=== PATIENT | female | born 1980 | race Hispanic/Latino ===

== ENCOUNTER 2017-05-25 06:35 | Emergency (ER) | payer MEDICAID, OTHER ==
[2017-05-25 06:44] VITALS: BP 136/63; PULSE 102; RESP 19; TEMP 98.3; O2SAT 100; BMI 27.4
[2017-05-25] MEDS ORDERED: Oxycodone/Acetaminophen 5/325 mg Tab PO STA (07:22)
--- NOTE | 2017-05-25 07:42 | ED PDOC ---
Arrival/HPI - General Chief Complaint: Dental Pain Time Seen by Provider: 05/25/17 07:06 Historian: Patient - History of Present Illness Narrative History of Present Illness (Text): 05/25/17 08:00 A 37 year old female presents to the emergency department complaining of left upper tooth pain radiating to lower teeth and headache for the past week. Notes taking Tramadol and Advil for pain. Patient reports last dentist check up was a year ago. Patient notes she has a dentist appointment tomorrow. Denies any numbness or tingling in extremities. Denies any other complaints at this time. Dentist: Dr. Camilo ([place]) Time/Duration: 1 week Symptom Onset: Sudden Symptom Course: Unchanged Activities at Onset: Rest Context: Home Past Medical History - Provider Review Nursing Documentation Reviewed: Yes - Infectious Disease Hx of Infectious Diseases: None - Tetanus Immunization Tetanus Immunization: Unknown - Cardiac Hx Cardiac Disorders: No Hx Hypertension: No - Pulmonary Hx Respiratory Disorders: No - Neurological Hx Dizziness: Yes Hx Seizures: Yes - HEENT Hx HEENT Disorder: No - Renal Hx Renal Disorder: No - Endocrine/Metabolic Hx Endocrine Disorders: No - Hematological/Oncological Hx Anemia: Yes - Integumentary Hx Dermatological Disorder: No - Musculoskeletal/Rheumatological Hx Musculoskeletal Disorders: No Hx Falls: No - Gastrointestinal Hx Gastrointestinal Disorders: No - Genitourinary/Gynecological Hx Sexually Transmitted Diseases: No Hx Urinary Tract Infection: Yes - Psychiatric Hx Depression: Yes (when father ,STARTED DRINKING.FATHER IS AN ALCOHOLIC) Hx Substance Use: Yes - Past Surgical History Past Surgical History: No Previous - Surgical History Hx Tonsillectomy: Yes - Anesthesia Hx Anesthesia: Yes Hx Anesthesia Reactions: No Hx Malignant Hyperthermia: No - Suicidal Assessment Feels Threatened In Home Enviroment: No Family/Social History - Physician Review Nursing Documentation Reviewed: Yes Family/Social History: No Known Family HX Smoking Status: Current Some Days Smoker Hx Alcohol Use: Yes (BINGE DRINKS.LAST DRANK 9-12-16 PINT OF VODKA) Hx Substance Use: Yes Substance used: suboxone Allergies/Home Meds Allergies/Adverse Reactions: Allergies apple Allergy (Verified 05/25/17 06:44) RASH pear Allergy (Verified 05/25/17 06:44) RASH Penicillins Allergy (Verified 05/25/17 06:44) RASH Review of Systems - Physician Review All systems were reviewed & negative as marked: Yes - Review of Systems Constitutional: Other (dental pain) Neurological: Headache Physical Exam - Physical Exam Narrative Physical Exam (Text): 05/25/17 07:44 Head: Atraumatic. Normocephalic. Eyes: PERRL. EOMI. Conjunctivae are not pale. ENT: Mucous membranes are moist and intact. Oropharynx is clear and symmetric. No facial edema, erythema. Oral pharynx tenderness on percussion L upper molar, gingival sensitivity. No pus, bleeding. No pharyngeal exudates. TM cleared bilaterally. Neck: Supple. Pulmonary/Chest: No evidence of respiratory distress. Skin: Skin is warm and dry. No petechiae. No purpura. Neurological: Alert, awake, and oriented to person, place, time, and situation. Normal speech. Cranial nerves intact. Psychiatric: Good eye contact. Normal interaction, affect, and behavior. Vital Signs Reviewed: Yes Vital Signs Temp Pulse Resp BP Pulse Ox 05/25/17 06:44 98.3 F 102 H 19 136/63 100 Temperature: Afebrile Blood Pressure: Normal Pulse: Tachycardic Respiratory Rate: Normal Appearance: Positive for: Well-Appearing, Non-Toxic, Comfortable Pain Distress: None Mental Status: Positive for: Alert and Oriented X 3 Medical Decision Making ED Course and Treatment: 05/25/17 07:42 Impression: A 37 year old female with dental pain and headache. Differential Diagnosis included but are not limited to: dental caries vs. dental abscess Plan: -- Reassess and disposition Prior Visits: Notes and results from previous visits were reviewed. Patient last reported to the emergency department on 09/10/16 for evaluation of alcohol intoxication. Progress Notes: Patient is currently afebrile, nontoxic. No obvious facial swelling. Due to tenderness to tooth, suspected source of pain. Discussed the side effects of Percocet. Patient denies drinking. Patient will be discharged on pain medication and antibiotics. I have discussed the plan with the patient, who expresses understanding. Patient in agreement with plan to be discharged home. Patient is stable for discharge. Patient was instructed to follow up with physician or return if symptoms worsen or new concerning symptoms arise. - Medication Orders Current Medication Orders: Discontinued Medications Oxycodone/Acetaminophen (Percocet 5/325 Mg Tab) 1 tab PO STAT STA Stop: 05/25/17 07:23 Last Admin: 05/25/17 07:34 Dose: 1 tab - Scribe Statement The provider has reviewed the documentation as recorded by the Melissa Suero Provider Melissa Attestation: All medical record entries made by the Scribe were at my direction and personally dictated by me. I have reviewed the chart and agree that the record accurately reflects my personal performance of the history, physical exam, medical decision making, and the department course for this patient. I have also personally directed, reviewed, and agree with the discharge instructions and disposition. Disposition/Present on Arrival - Present on Arrival History of DVT/PE: No History of Uncontrolled Diabetes: No Urinary Catheter: No History of Decub. Ulcer: No History Surgical Site Infection Following: None - Disposition Diagnosis: Pain, dental Disposition: HOME/ ROUTINE Discharge Instructions (ExitCare): Toothache (ED) Additional Instructions: For any facial swelling, any drooping, any rash, any pain with eye movements, any headaches, any numbness or weakness, get rechecked. Follow-up with your dentist tomorrow. Risks and side effects and addiction potential of Percocet have been reviewed with you. Take pain medication only as needed and as directed. Take antibiotic as directed. Prescriptions: Clindamycin [Cleocin] 300 mg PO QID #28 cap oxyCODONE/Acetaminophen [Percocet 5/325 mg Tab] 1 ea PO Q6 PRN #8 tab PRN Reason: severe pain
== END 2017-05-25 07:38 | disposition home or self-care (01) ==
LOC: ED 06:35
DX: K08.89 Other specified disorders of teeth and supporting structures (principal)

== ENCOUNTER 2017-09-24 21:46 | Emergency (ER) | payer OTHER ==
[2017-09-24 21:57] VITALS: TEMP 98.1; O2SAT 100; BMI 26.5
--- NOTE | 2017-09-24 22:40 | ED PDOC ---
Arrival/HPI - General Chief Complaint: Back Pain Time Seen by Provider: 09/24/17 21:57 Historian: Patient - History of Present Illness Narrative History of Present Illness (Text): 09/24/17 22:25 37 year old female, whose past medical history includes tobacco abuse, who presents to the Emergency department complaining left mid back pain, atraumatic , for the past several months. Patient states she has never been evaluated by a doctor for her back pain. Patient denies any trauma/injury, fever, chills, cough , shortness of breath, chest pain, abdominal pain, nausea, vomiting, diarrhea, urinary symptoms, bladder/bowel incontinence, numbness/weakness/tingling in the extremities, or any other complaints. Patient denies any alcohol consumption or history of IV drug abuse. Time/Duration: > month (Several months) Symptom Onset: Gradual Symptom Course: Unchanged Activities at Onset: Light Context: Home Past Medical History - Provider Review Nursing Documentation Reviewed: Yes - Infectious Disease Hx of Infectious Diseases: None - Tetanus Immunization Tetanus Immunization: Unknown - Cardiac Hx Cardiac Disorders: No Hx Hypertension: No - Pulmonary Hx Respiratory Disorders: No - Neurological Hx Dizziness: Yes Hx Seizures: Yes - HEENT Hx HEENT Disorder: No - Renal Hx Renal Disorder: No - Endocrine/Metabolic Hx Endocrine Disorders: No - Hematological/Oncological Hx Anemia: Yes - Integumentary Hx Dermatological Disorder: No - Musculoskeletal/Rheumatological Hx Musculoskeletal Disorders: No Hx Falls: No - Gastrointestinal Hx Gastrointestinal Disorders: No - Genitourinary/Gynecological Hx Sexually Transmitted Diseases: No Hx Urinary Tract Infection: Yes - Psychiatric Hx Depression: Yes (when father ,STARTED DRINKING.FATHER IS AN ALCOHOLIC) Hx Substance Use: Yes - Past Surgical History Past Surgical History: No Previous - Surgical History Hx Tonsillectomy: Yes - Anesthesia Hx Anesthesia: Yes Hx Anesthesia Reactions: No Hx Malignant Hyperthermia: No - Suicidal Assessment Feels Threatened In Home Enviroment: No Family/Social History - Physician Review Nursing Documentation Reviewed: Yes Family/Social History: Unknown Family HX Smoking Status: Current Some Days Smoker Hx Alcohol Use: Yes (BINGE DRINKS.LAST DRANK 9-12-16 PINT OF VODKA) Hx Substance Use: No (denies any h/o IVDU) Substance used: suboxone Allergies/Home Meds Allergies/Adverse Reactions: Allergies apple Allergy (Verified 09/24/17 21:57) RASH pear Allergy (Verified 09/24/17 21:57) RASH Penicillins Allergy (Verified 09/24/17 21:57) RASH Review of Systems - Physician Review All systems were reviewed & negative as marked: Yes - Review of Systems Constitutional: Normal. absent: Fevers Eyes: Normal ENT: Normal Respiratory: Normal. absent: SOB, Cough Cardiovascular: Normal. absent: Chest Pain Gastrointestinal: Normal. absent: Abdominal Pain, Diarrhea, Nausea, Vomiting Genitourinary Female: Normal. absent: Dysuria, Frequency, Hematuria, Urine Output Changes Musculoskeletal: Back Pain. absent: Neck Pain Skin: Normal. absent: Rash Neurological: Normal. absent: Headache, Dizziness Endocrine: Normal Hemo/Lymphatic: Normal Psychiatric: Normal Physical Exam Vital Signs Reviewed: Yes Vital Signs Temp Pulse Resp BP Pulse Ox 09/24/17 21:57 98.1 F 83 19 145/97 H 100 09/24/17 21:55 98.1 F 83 19 145/97 H 100 Temperature: Afebrile Blood Pressure: Normal Pulse: Regular Respiratory Rate: Normal Appearance: Positive for: Well-Appearing, Non-Toxic, Comfortable Pain Distress: None Mental Status: Positive for: Alert and Oriented X 3 - Systems Exam Head: Present: Atraumatic, Normocephalic Pupils: Present: PERRL Extroacular Muscles: Present: EOMI Conjunctiva: Present: Normal Mouth: Present: Moist Mucous Membranes Neck: Present: Normal Range of Motion Respiratory/Chest: Present: Clear to Auscultation, Good Air Exchange. No: Respiratory Distress, Accessory Muscle Use Cardiovascular: Present: Regular Rate and Rhythm, Normal S1, S2. No: Murmurs Abdomen: Present: Normal Bowel Sounds. No: Tenderness, Distention, Peritoneal Signs Back: Present: Paraspinal Tenderness (Mild tenderness to left mid back). No: CVA Tenderness, Pain with Leg Raise Upper Extremity: Present: Normal Inspection. No: Cyanosis, Edema Lower Extremity: Present: Normal Inspection. No: Edema Neurological: Present: GCS=15, CN II-XII Intact, Speech Normal Skin: Present: Warm, Dry, Normal Color. No: Rashes Psychiatric: Present: Alert, Oriented x 3, Normal Insight, Normal Concentration Medical Decision Making ED Course and Treatment: 09/24/17 22:25 Impression: 37 year old female complaining of atraumatic left mid back pain for several months. Plan: -- XR Dorsal Thoracic Spine -- Reassess and disposition Progress Notes: cg (-). XR T spine : (-) fracture, (-) acute abnormality, as read by PA. XR results d/w the patient. Advised to f/u with the clinic in 2-3 days without fail. Take medication as prescribed. - RAD Interpretation Radiology Orders: 09/24/17 22:26 DORSAL (THORACIC) SPINE [RAD] Stat Freelance Writer: ED Physician - PA / DISTANCE EDUCATION TEACHER / Resident Statement MD/DO has reviewed & agrees with the documentation as recorded. - Scribe Statement The provider has reviewed the documentation as recorded by the Melissa Aleman Provider Scribe Attestation: All medical record entries made by the Jennyibjaki were at my direction and personally dictated by me. I have reviewed the chart and agree that the record accurately reflects my personal performance of the history, physical exam, medical decision making, and the department course for this patient. I have also personally directed, reviewed, and agree with the discharge instructions and disposition. Disposition/Present on Arrival - Present on Arrival Any Indicators Present on Arrival: No History of DVT/PE: No History of Uncontrolled Diabetes: No Urinary Catheter: No History of Decub. Ulcer: No History Surgical Site Infection Following: None - Disposition Have Diagnosis and Disposition been Completed?: Yes Diagnosis: Back pain Disposition: HOME/ ROUTINE Disposition Time: 23:30 Patient Plan: Discharge Patient Problems: Current Active Problems Problem Status Onset Back pain Acute Condition: STABLE Discharge Instructions (ExitCare): Back Pain (ED) Print Language: CHADIAN Additional Instructions: Thank you for letting us take care of you today. You were treated for back pain. The emergency medical care you received today was directed at your acute symptoms. If you were prescribed any medication, please fill it and take as directed. It may take several days for your symptoms to resolve. Return to the Emergency Department if your symptoms worsen, do not improve, or if you have any other problems. Please contact your doctor in 2 days for re-evaluation and follow up / or call one of the physicians/clinics you have been referred to that are listed on the Patient Visit Information form that is included in your discharge packet. Bring any paperwork you were given at discharge with you along with any medications you are taking to your follow up visit. Our treatment cannot replace ongoing medical care by a primary care provider (PCP) outside of the emergency department. Thank you for allowing the [facility] team to be part of your care today. If you had an X-Ray : A Radiologist will review the ED reading if any change in treatment is needed we will contact you. Prescriptions: Cyclobenzaprine [Cyclobenzaprine HCl] 10 mg PO TID PRN #15 tab PRN Reason: Muscle Spasm Meloxicam [Mobic] 15 mg PO DAILY #20 tab Referrals: PCP,NO [Primary Care Provider] - Follow up with primary [facility] [place]] - Follow up with primary Forms: [employer] (Djiboutian)
[2017-09-25 00:09] VITALS: BP 135/85; PULSE 80; RESP 18
--- NOTE | 2017-09-25 10:13 | RAD ---
HISTORY: pain COMPARISON: No prior. FINDINGS: BONES: Alignment maintained. No fracture. DISC SPACES: Disc space heights are relatively maintained however there is multilevel small marginal anterior osteophyte formation. . SOFT TISSUES: Normal. OTHER FINDINGS: None. IMPRESSION: No acute fractures. Multilevel small marginal anterior osteophyte formation.
== END 2017-09-25 00:08 | disposition home or self-care (01) ==
LOC: ED 21:46
DX: M54.9 Dorsalgia, unspecified (principal)

== ENCOUNTER 2018-05-26 21:40 | Emergency (ER) | payer OTHER ==
[2018-05-26 21:51] VITALS: BMI 27.4
[2018-05-26 21:55] VITALS: BP 124/83; RESP 18; TEMP 98.5
--- NOTE | 2018-05-26 22:13 | ED PDOC ---
Arrival/HPI - General Chief Complaint: Lower Extremity Problem/Injury Time Seen by Provider: 05/26/18 21:52 Historian: Patient - History of Present Illness Narrative History of Present Illness (Text): 05/26/18 22:03 38 y/o female, no significant pmh, psychiatric history including anxiety/ depression/bipolar, penicillin allergy, c/o lt. knee and calf pain x 1 week. Pt. stated that the lt. knee pain been chronic, associated with locking sensation especially walking down the stair, on going for one year, more frequently for the past 1 week, associated radiating to the proximal left calf region, no swelling, no fever or chills, no other medical or psychological complaints. Past Medical History - Provider Review Nursing Documentation Reviewed: Yes - Infectious Disease Hx of Infectious Diseases: None - Tetanus Immunization Tetanus Immunization: Unknown - Cardiac Hx Cardiac Disorders: No Hx Hypertension: No - Pulmonary Hx Respiratory Disorders: No - Neurological Hx Neurological Disorder: Yes Hx Dizziness: Yes Hx Seizures: Yes - HEENT Hx HEENT Disorder: No - Renal Hx Renal Disorder: No - Endocrine/Metabolic Hx Endocrine Disorders: No - Hematological/Oncological Hx Blood Disorders: Yes Hx Anemia: Yes - Integumentary Hx Dermatological Disorder: No - Musculoskeletal/Rheumatological Hx Musculoskeletal Disorders: No Hx Falls: No - Gastrointestinal Hx Gastrointestinal Disorders: No - Genitourinary/Gynecological Hx Genitourinary Disorders: Yes Hx Urinary Tract Infection: Yes - Psychiatric Hx Psychophysiologic Disorder: Yes Hx Depression: Yes (when father ,STARTED DRINKING.FATHER IS AN ALCOHOLIC) Hx Substance Use: No (denies any h/o IVDU) - Past Surgical History Past Surgical History: No Previous - Surgical History Hx Tonsillectomy: Yes - Anesthesia Hx Anesthesia: Yes Hx Anesthesia Reactions: No Hx Malignant Hyperthermia: No - Suicidal Assessment Feels Threatened In Home Enviroment: No Family/Social History - Physician Review Nursing Documentation Reviewed: Yes Family/Social History: Unknown Family HX Smoking Status: Current Some Days Smoker Hx Alcohol Use: Yes (BINGE DRINKS.LAST DRANK 9-12-16 PINT OF VODKA) Hx Substance Use: No (denies any h/o IVDU) Substance used: suboxone Allergies/Home Meds Allergies/Adverse Reactions: Allergies apple Allergy (Verified 05/26/18 21:51) RASH pear Allergy (Verified 05/26/18 21:51) RASH Penicillins Allergy (Verified 05/26/18 21:51) RASH Review of Systems - Review of Systems Constitutional: absent: Fatigue, Fevers Eyes: absent: Vision Changes ENT: absent: Hearing Changes Respiratory: absent: SOB, Cough Cardiovascular: absent: Chest Pain Gastrointestinal: absent: Abdominal Pain, Nausea, Vomiting Musculoskeletal: Arthralgias, Myalgias. absent: Back Pain, Neck Pain, Joint Swelling Skin: absent: Rash, Pruritis Neurological: absent: Headache, Dizziness Psychiatric: absent: Anxiety, Depression, Suicidal Ideation Physical Exam Vital Signs Reviewed: Yes Vital Signs Temp Pulse Resp BP Pulse Ox 05/26/18 21:52 98.5 F 97 H 18 124/83 99 Temperature: Afebrile Blood Pressure: Normal Pulse: Regular Respiratory Rate: Normal Appearance: Positive for: Well-Appearing, Non-Toxic Pain Distress: Severe Mental Status: Positive for: Alert and Oriented X 3 - Systems Exam Head: Present: Atraumatic, Normocephalic Pupils: Present: PERRL Extroacular Muscles: Present: EOMI Conjunctiva: Present: Normal Mouth: Present: Moist Mucous Membranes Neck: Present: Normal Range of Motion Respiratory/Chest: Present: Clear to Auscultation, Good Air Exchange. No: Respiratory Distress, Accessory Muscle Use Cardiovascular: Present: Regular Rate and Rhythm, Normal S1, S2. No: Murmurs Abdomen: No: Tenderness, Distention, Peritoneal Signs Back: Present: Normal Inspection Upper Extremity: Present: Normal Inspection. No: Cyanosis, Edema Lower Extremity: Present: Normal Inspection, NORMAL PULSES, Normal ROM, Neurovascularly Intact, Capillary Refill < 2 s, Other (LLE: no swelling or tenderness, mild proximal calf tenderness, skin intact, negative turner signs , +Dori test, neurovascular intact. ). No: Edema, Deformity Neurological: Present: GCS=15, CN II-XII Intact, Speech Normal Skin: Present: Warm, Dry, Normal Color. No: Rashes Psychiatric: Present: Alert, Oriented x 3, Normal Insight, Normal Concentration Medical Decision Making ED Course and Treatment: 05/26/18 22:20 Differential: DVT vs. Fracture vs. Menisucus or other internal knee injury -Lt. knee xray -LLE venuous doppler -MOtrin/percocet 05/27/18 00:13 -Urine hcg is negative. -Lt. knee xray: no fracture or dislocation, vascular calcification incidentally noted -LLE Venuous doppler: as per preliminary report, no acute DVT -I discussed with the patient about possible menisucus or internal knee derangement injury which she would need outpatient orthopedic and MRI of the left knee. -kailee wrap applied with neurovascular intact. -Discharge home with motrin, kailee wrap, knee immobilizer, crutches, non-weight bearing, follow up with your own pmd and orthopedic within 2 days plus outpatient MRI of the lt. knee, avoid gym and exercise including running for the lt. knee pain, return to the ER for any new or worsening signs or symptoms. - RAD Interpretation Radiology Orders: 05/26/18 22:14 KNEE WITH PATELLA LEFT 3 VIEW [RAD] Stat DUPLEX LOWER EXTRM VEIN LEFT [US] Stat Lt. knee xray: COMPARISON: No relevant prior studies available. FINDINGS: Bones/joints: Unremarkable. No acute fracture. No dislocation. Soft tissues: Vascular calcifications posterior knee IMPRESSION: Negative for acute abnormality Thank you for allowing us to participate in the care of your patient. Dictated and Authenticated by: Dennis Juan MD 05/26/2018 11:51 PM Eastern Time ([place] & [place]) LLE Venuous doppler: as per preliminary report, no acute DVT Locks Inspector: Radiologist - Medication Orders Current Medication Orders: Discontinued Medications Ibuprofen (Motrin Tab) 600 mg PO STAT STA Stop: 05/26/18 22:15 Last Admin: 05/26/18 22:59 Dose: 600 mg Oxycodone/Acetaminophen (Percocet 5/325 Mg Tab) 1 tab PO STAT STA Stop: 05/26/18 22:15 Last Admin: 05/26/18 22:59 Dose: 1 tab MAR Pain Assessment Document 05/26/18 22:59 HI (Rec: 05/26/18 22:59 [place] [facility] Pain Reassessment Is this a pain reassessment? No - PA / GRINDER OPERATOR TOOL / Resident Statement / has reviewed & agrees with the documentation as recorded. Disposition/Present on Arrival - Present on Arrival Any Indicators Present on Arrival: No History of DVT/PE: No History of Uncontrolled Diabetes: No Urinary Catheter: No History of Decub. Ulcer: No History Surgical Site Infection Following: None - Disposition Have Diagnosis and Disposition been Completed?: Yes Diagnosis: Locking knee, Knee pain, Vascular calcification Disposition: HOME/ ROUTINE Disposition Time: 22:24 Patient Plan: Discharge Patient Problems: Current Active Problems Problem Status Onset Locking knee Acute Knee pain Acute Condition: IMPROVED Additional Instructions: -Discharge home with motrin, kailee wrap, knee immobilizer, crutches, non-weight bearing, follow up with your own pmd and orthopedic within 2 days plus outpatient MRI of the lt. knee, avoid gym and exercise including running for the lt. knee pain, return to the ER for any new or worsening signs or symptoms. Prescriptions: Ibuprofen [Motrin Tab] 600 mg PO QID PRN #30 tab PRN Reason: Other Referrals: Kurt Hughes MD [Primary Care Provider] - Follow up with primary Rakan Oscar MD [Staff Provider] - Follow up with primary Rodrick Conner DO [Staff Provider] - Follow up with primary Forms: [facility] (Lithuanian), WORK NOTE
[2018-05-26] MEDS ORDERED: Oxycodone/Acetaminophen 5/325 mg Tab PO STA (22:14)
[2018-05-27 00:23] VITALS: PULSE 80
[2018-05-27 01:04] VITALS: O2SAT 98
--- NOTE | 2018-05-27 10:51 | RAD ---
Date of service: 05/26/2018 PROCEDURE: Left Knee and patella Radiographs. HISTORY: Pain. COMPARISON: None. FINDINGS: BONES: Normal. No fracture. JOINTS: Normal. No osteoarthritis. JOINT EFFUSION: None. OTHER FINDINGS: Vascular calcification. The report concurs with the preliminary [facility] report IMPRESSION: No acute findings
--- NOTE | 2018-05-27 13:12 | US ---
PROCEDURE: Left lower extremity venous US HISTORY: Leg pain and swelling. Evaluate for DVT. PHYSICIAN(S): Rakan Oscar MD. TECHNIQUE: Duplex sonography and color-flow Doppler with graded compression were used to evaluate the deep venous system of the left lower extremity. FINDINGS: The visualized deep venous system of the left lower extremity is sonographically normal and compressible. Normal wave forms and augmentation are seen. There is no sonographic evidence for deep venous thrombosis in the visualized segments of the left lower extremity. IMPRESSION: 1. No sonographic evidence for deep venous thrombosis in the visualized segments of the left lower extremity.
== END 2018-05-27 01:03 | disposition home or self-care (01) ==
LOC: ED 21:40
DX: M25.562 Pain in left knee (principal); M23.92 Unspecified internal derangement of left knee; I99.9 Unspecified disorder of circulatory system

== ENCOUNTER 2018-06-20 13:41 | Emergency (ER) | payer OTHER ==
[2018-06-20 13:41] VITALS: BMI 27.4
[2018-06-20 13:57] VITALS: TEMP 98.8; O2SAT 99
--- NOTE | 2018-06-20 14:43 | ED PDOC ---
Arrival/HPI - General Chief Complaint: Lower Extremity Problem/Injury Time Seen by Provider: 06/20/18 13:59 Historian: Patient - History of Present Illness Narrative History of Present Illness (Text): 06/20/18 14:30 Patient is a 38 year old female who presents to the emergency department complaining left knee pain. Patient reports that her knee pain is chronic and she has had it for a "long time, years". She was here a few weeks ago with a negative DVT US and X-ray. She hasn't had an outpatient MRI. She denies any new trauma, fever, or other complaints. Symptom Course: Unchanged Context: Home Past Medical History - Provider Review Nursing Documentation Reviewed: Yes - Infectious Disease Hx of Infectious Diseases: None - Tetanus Immunization Tetanus Immunization: Unknown - Cardiac Hx Cardiac Disorders: No Hx Hypertension: No - Pulmonary Hx Respiratory Disorders: No - Neurological Hx Neurological Disorder: Yes Hx Dizziness: Yes Hx Seizures: Yes - HEENT Hx HEENT Disorder: No - Renal Hx Renal Disorder: No - Endocrine/Metabolic Hx Endocrine Disorders: No - Hematological/Oncological Hx Blood Disorders: Yes Hx Anemia: Yes - Integumentary Hx Dermatological Disorder: No - Musculoskeletal/Rheumatological Hx Musculoskeletal Disorders: Yes Other/Comment: L KNEE PAIN - Gastrointestinal Hx Gastrointestinal Disorders: No - Genitourinary/Gynecological Hx Genitourinary Disorders: Yes Hx Urinary Tract Infection: Yes - Psychiatric Hx Psychophysiologic Disorder: Yes Hx Depression: Yes Hx Substance Use: No - Past Surgical History Past Surgical History: No Previous - Surgical History Hx Tonsillectomy: Yes - Anesthesia Hx Anesthesia: Yes Hx Anesthesia Reactions: No Hx Malignant Hyperthermia: No - Suicidal Assessment Feels Threatened In Home Enviroment: No Family/Social History - Physician Review Nursing Documentation Reviewed: Yes Family/Social History: No Known Family HX Smoking Status: Current Some Days Smoker Hx Alcohol Use: Yes (BINGE) Hx Substance Use: No Substance used: suboxone Allergies/Home Meds Allergies/Adverse Reactions: Allergies apple Allergy (Verified 06/20/18 13:51) RASH pear Allergy (Verified 06/20/18 13:51) RASH Penicillins Allergy (Verified 06/20/18 13:51) RASH Review of Systems - Physician Review All systems were reviewed & negative as marked: Yes - Review of Systems Constitutional: Other (no trauma). absent: Fevers Physical Exam Vital Signs Reviewed: Yes Vital Signs Temp Pulse Resp BP Pulse Ox 06/20/18 14:46 76 18 118/70 99 06/20/18 13:51 98.8 F 94 H 16 130/91 H 99 Temperature: Afebrile Blood Pressure: Normal Pulse: Regular Respiratory Rate: Normal Appearance: Positive for: Well-Appearing Mental Status: Positive for: Alert and Oriented X 3 - Systems Exam Head: Present: Atraumatic, Normocephalic Pupils: Present: PERRL Extroacular Muscles: Present: EOMI Conjunctiva: Present: Normal Mouth: Present: Moist Mucous Membranes Neck: Present: Normal Range of Motion Respiratory/Chest: Present: Clear to Auscultation, Good Air Exchange. No: Respiratory Distress, Accessory Muscle Use Cardiovascular: Present: Regular Rate and Rhythm, Normal S1, S2. No: Murmurs Abdomen: No: Tenderness, Distention, Peritoneal Signs Back: Present: Normal Inspection Upper Extremity: Present: Normal Inspection. No: Cyanosis, Edema Lower Extremity: Present: Tenderness (left knee tenderness). No: Edema Neurological: Present: GCS=15, CN II-XII Intact, Speech Normal Skin: Present: Warm, Dry, Normal Color. No: Rashes Psychiatric: Present: Alert, Oriented x 3, Normal Insight, Normal Concentration Medical Decision Making ED Course and Treatment: 06/20/18 14:47 Impression: Patient is a 38 year old female who is complaining of chronic left knee pain. Differential Diagnosis included but are not limited to: Plan: -- Tylenol -- Left knee X-ray -- Reassess and disposition Prior Visits: Notes and results from previous visits were reviewed. Progress Notes: 06/20/18 14:45 Left knee X-ray results were negative. Interpreted by me. 06/20/18 14:47 Patient refused crutches because she has two pairs at home. - RAD Interpretation Radiology Orders: 06/20/18 14:06 KNEE LEFT 2 VIEWS (AP & LAT) [RAD] Stat Component Inspector: ED Physician - Medication Orders Current Medication Orders: Discontinued Medications Acetaminophen (Tylenol 325mg Tab) 975 mg PO STAT STA Stop: 06/20/18 14:08 Last Admin: 06/20/18 14:18 Dose: 975 mg MAR Pain/Vitals Document 06/20/18 14:18 GMD (Rec: 06/20/18 14:18 GMD [id number]) Pain Reassessment Is This A Pain ReAssessment? No - Scribe Statement The provider has reviewed the documentation as recorded by the Scribe Simón Hale Provider Scribe Attestation: All medical record entries made by the Scribe were at my direction and personally dictated by me. I have reviewed the chart and agree that the record accurately reflects my personal performance of the history, physical exam, medical decision making, and the department course for this patient. I have also personally directed, reviewed, and agree with the discharge instructions and disposition. Disposition/Present on Arrival - Present on Arrival Any Indicators Present on Arrival: No History of DVT/PE: No History of Uncontrolled Diabetes: No Urinary Catheter: No History of Decub. Ulcer: No History Surgical Site Infection Following: None - Disposition Have Diagnosis and Disposition been Completed?: Yes Diagnosis: Knee pain Disposition: HOME/ ROUTINE Disposition Time: 14:50 Condition: STABLE Discharge Instructions (ExitCare): Chronic Knee Pain Additional Instructions: please follow up with your doctor/clinic and specialist. you will likely need further testing as an outpatient. return to er with worsening symptoms or concerns. Prescriptions: Naproxen 500 mg PO BID PRN #14 tablet PRN Reason: Pain, Mild (1-3) Referrals: [facility] [Outside] - Follow up with primary Sugey Thorpe DO [Primary Care Provider] - Follow up with primary Forms: [employer] ([place])
[2018-06-20 14:47] VITALS: BP 118/70; PULSE 76; RESP 18
--- NOTE | 2018-06-20 15:23 | RAD ---
Date of service: 06/20/2018 PROCEDURE: Left Knee Radiographs. HISTORY: Chronic knee pain COMPARISON: None. FINDINGS: BONES: Normal. No fracture. JOINTS: Questionable small calcifications within the medial joint space. There also appears to be mild medial joint space narrowing JOINT EFFUSION: None. OTHER FINDINGS: Several clusters of small granular calcifications seen within the popliteal soft tissues. There may also be a small tissues IMPRESSION: Mild medial joint space narrowing. Questionable tiny calcifications within the medial joint space margin. There several clusters of small calcifications seen within the popliteal soft tissues nonspecific.
== END 2018-06-20 14:46 | disposition home or self-care (01) ==
LOC: ED 13:41
DX: M25.562 Pain in left knee (principal)

== ENCOUNTER 2019-01-16 19:04 | Emergency (ER) | payer MEDICAID, OTHER ==
[2019-01-16 19:26] VITALS: BMI 29.2
--- NOTE | 2019-01-16 19:43 | ED PDOC ---
Arrival/HPI - General Chief Complaint: Cough, Cold, Congestion Time Seen by Provider: 01/16/19 19:12 Historian: Patient - History of Present Illness Narrative History of Present Illness (Text): 01/16/19 19:45 38 yo F presents c/o 2 week h/o nasal congestion, R sided facial pain, rhinorrhea and greenish phlegm. Of note, patient does smoke. Denies any fever, chills, cough, sore throat, ear pain, SOB, chest pain. PMD Thorpe Past Medical History - Infectious Disease Hx of Infectious Diseases: None - Tetanus Immunization Tetanus Immunization: Unknown - Cardiac Hx Cardiac Disorders: No Hx Hypertension: No - Pulmonary Hx Respiratory Disorders: No - Neurological Hx Neurological Disorder: Yes Hx Dizziness: Yes Hx Seizures: Yes - HEENT Hx HEENT Disorder: No - Renal Hx Renal Disorder: No - Endocrine/Metabolic Hx Endocrine Disorders: No - Hematological/Oncological Hx Blood Disorders: Yes Hx Anemia: Yes - Integumentary Hx Dermatological Disorder: No - Musculoskeletal/Rheumatological Hx Musculoskeletal Disorders: Yes Other/Comment: L KNEE PAIN - Gastrointestinal Hx Gastrointestinal Disorders: No - Genitourinary/Gynecological Hx Genitourinary Disorders: Yes Hx Urinary Tract Infection: Yes - Psychiatric Hx Psychophysiologic Disorder: Yes Hx Depression: Yes Hx Substance Use: No (denies) - Past Surgical History Past Surgical History: No Previous - Surgical History Hx Tonsillectomy: Yes - Anesthesia Hx Anesthesia: Yes Hx Anesthesia Reactions: No Hx Malignant Hyperthermia: No - Suicidal Assessment Feels Threatened In Home Enviroment: No Family/Social History Family/Social History: No Known Family HX Smoking Status: Heavy Smoker > 10 Cigarettes Daily Hx Alcohol Use: Yes (denies) Hx Substance Use: No (denies) Substance used: suboxone Allergies/Home Meds Allergies/Adverse Reactions: Allergies apple Allergy (Verified 01/16/19 19:25) RASH pear Allergy (Verified 01/16/19 19:25) RASH Penicillins Allergy (Verified 01/16/19 19:25) RASH Review of Systems - Review of Systems Constitutional: absent: Fatigue, Fevers ENT: Rhinorrhea, Sinus Congestion. absent: Sore Throat Respiratory: Sputum. absent: SOB, Cough Cardiovascular: absent: Chest Pain, Palpitations Gastrointestinal: absent: Nausea, Vomiting Skin: absent: Rash, Skin Lesions Neurological: Headache (+facial pain). absent: Dizziness Physical Exam Appearance: Positive for: Well-Appearing, Non-Toxic, Comfortable Pain Distress: None Mental Status: Positive for: Alert and Oriented X 3 - Systems Exam Head: Present: Atraumatic, Normocephalic, Tenderness (+maxillary sinus tenderness R>L) Pupils: Present: PERRL Extroacular Muscles: Present: EOMI Conjunctiva: Present: Normal Ears: Present: Normal, NORMAL TM Mouth: Present: Moist Mucous Membranes, Normal Teeth Pharnyx: Present: Normal. No: ERYTHEMA, EXUDATE Neck: Present: Normal Range of Motion, Lymphadenopathy (+L anterior cervical lymphadenopathy). No: Meningeal Signs Respiratory/Chest: Present: Clear to Auscultation, Good Air Exchange. No: Respiratory Distress, Accessory Muscle Use Cardiovascular: Present: Regular Rate and Rhythm, Normal S1, S2. No: Murmurs Back: Present: Normal Inspection Upper Extremity: Present: Normal Inspection. No: Cyanosis, Edema Lower Extremity: Present: Normal Inspection. No: Edema Neurological: Present: GCS=15, CN II-XII Intact, Speech Normal Skin: Present: Warm, Dry, Normal Color. No: Rashes Psychiatric: Present: Alert, Oriented x 3, Normal Insight, Normal Concentration Medical Decision Making ED Course and Treatment: 01/16/19 19:42 Of note, patient does not have a true allergy to pcn, states that she last took it in high school and developed nausea and a stomach ache, no rash, no facial/tongue swelling. Patient medicated with amoxicillin 500 mg PO. Diagnosis of sinusitis d/w the patient. On reevaluation, patient remains awake alert and oriented 3 in no acute distress. She had no allergic reaction to amoxicillin after receiving the 1st dose here, therefore safe to prescribe. Advised to follow up with primary care physician in 1-2 days without fail. Advised to take medication as prescribed. Return to the emergency room at any time for any new or worsening symptoms. Patient states she fully agrees with and understands discharge instructions. States that she agrees with the plan and disposition. Verbalized and repeated discharge instructions and plan. I have given the patient opportunity to ask any additional questions. - PA / HAIR WORKER / Resident Statement / has reviewed & agrees with the documentation as recorded. Disposition/Present on Arrival - Present on Arrival Any Indicators Present on Arrival: No History of DVT/PE: No History of Uncontrolled Diabetes: No Urinary Catheter: No History of Decub. Ulcer: No History Surgical Site Infection Following: None - Disposition Have Diagnosis and Disposition been Completed?: Yes Diagnosis: Sinusitis Disposition: HOME/ ROUTINE Disposition Time: 19:45 Patient Plan: Discharge Condition: STABLE Discharge Instructions (ExitCare): Sinusitis in Adults Additional Instructions: Thank you for letting us take care of you today. You were treated for sinusitis. The emergency medical care you received today was directed at your acute symptoms. If you were prescribed any medication, please fill it and take as directed. It may take several days for your symptoms to resolve. Return to the Emergency Department if your symptoms worsen, do not improve, or if you have any other problems. Please contact your doctor in 2 days for re-evaluation and follow up. Bring any paperwork you were given at discharge with you along with any medications you are taking to your follow up visit. Our treatment cannot replace ongoing medical care by a primary care provider (PCP) outside of the emergency department. Thank you for allowing the [facility] team to be part of your care today. Prescriptions: Amoxicillin 500 mg PO TID #30 tablet Fluticasone Propionate [Flonase] 2 spr YEVGEINY DAILY #1 bottle Referrals: Sugey Thorpe DO [Primary Care Provider] - Follow up with primary Forms: [employer] (Belarusian), WORK NOTE
[2019-01-16 19:48] VITALS: BP 133/82; PULSE 99; RESP 20; TEMP 98.7; O2SAT 100
== END 2019-01-16 20:07 | disposition home or self-care (01) ==
LOC: ED 19:04
DX: J32.9 Chronic sinusitis, unspecified (principal); F17.210 Nicotine dependence, cigarettes, uncomplicated

== ENCOUNTER 2019-02-17 18:19 | Emergency (ER) | payer MEDICAID ==
[2019-02-17 18:29] VITALS: BMI 29.2
[2019-02-17 18:32] VITALS: RESP 18; TEMP 98.1; O2SAT 100
--- NOTE | 2019-02-17 19:09 | ED PDOC ---
Arrival/HPI - General Chief Complaint: Headache Historian: Patient - History of Present Illness Narrative History of Present Illness (Text): 02/17/19 19:01 39 y/o female, psychiatric history including alcohol abuse, allergic to penicillin, c/o headache x 1 month with no fall or trauma. Pt. stated that she has the runny nose/nasal congestion with sinus pressure causing her headache, stated that she tried amoxicillin/clindamycin with limited relief, no facial or eye swelling, no numbness or tingling, no painful movement of the eye, no night sweat, no rash, no dizziness, no change in vision, no abdominal/pelvic pain, no other medical or psychological complaints. Past Medical History - Provider Review Nursing Documentation Reviewed: Yes - Infectious Disease Hx of Infectious Diseases: None - Tetanus Immunization Tetanus Immunization: Unknown - Cardiac Hx Cardiac Disorders: No Hx Hypertension: No - Pulmonary Hx Respiratory Disorders: No - Neurological Hx Neurological Disorder: Yes Hx Dizziness: Yes Hx Seizures: Yes - HEENT Hx HEENT Disorder: No - Renal Hx Renal Disorder: No - Endocrine/Metabolic Hx Endocrine Disorders: No - Hematological/Oncological Hx Blood Disorders: Yes Hx Anemia: Yes - Integumentary Hx Dermatological Disorder: No - Musculoskeletal/Rheumatological Hx Musculoskeletal Disorders: Yes Other/Comment: L KNEE PAIN - Gastrointestinal Hx Gastrointestinal Disorders: No - Genitourinary/Gynecological Hx Genitourinary Disorders: Yes Hx Urinary Tract Infection: Yes - Psychiatric Hx Psychophysiologic Disorder: Yes Hx Depression: Yes Hx Substance Use: No (denies) - Past Surgical History Past Surgical History: No Previous - Surgical History Hx Tonsillectomy: Yes - Anesthesia Hx Anesthesia: Yes Hx Anesthesia Reactions: No Hx Malignant Hyperthermia: No - Suicidal Assessment Feels Threatened In Home Enviroment: No Family/Social History - Physician Review Nursing Documentation Reviewed: Yes Family/Social History: Unknown Family HX Smoking Status: Heavy Smoker > 10 Cigarettes Daily Hx Alcohol Use: Yes (Former Drinker) Hx Substance Use: No (denies) Substance used: suboxone Allergies/Home Meds Allergies/Adverse Reactions: Allergies apple Allergy (Verified 02/17/19 18:29) RASH pear Allergy (Verified 02/17/19 18:29) RASH Penicillins Allergy (Verified 02/17/19 18:29) RASH Review of Systems - Review of Systems Constitutional: absent: Fatigue, Fevers Eyes: absent: Vision Changes ENT: Rhinorrhea, Sinus Congestion. absent: Hearing Changes Respiratory: absent: SOB, Cough Cardiovascular: absent: Chest Pain Gastrointestinal: absent: Abdominal Pain, Diarrhea, Nausea, Vomiting Genitourinary Female: absent: Dysuria, Frequency Musculoskeletal: absent: Arthralgias, Back Pain Skin: absent: Rash Neurological: Headache. absent: Dizziness, Focal Weakness, Gait Changes, Speech Changes, Facial Droop, Disequilibrium, Seizure Psychiatric: absent: Anxiety, Depression, Suicidal Ideation Physical Exam Vital Signs Reviewed: Yes Vital Signs Temp Pulse Resp BP Pulse Ox 02/17/19 18:30 98.1 F 109 H 18 126/87 100 Temperature: Afebrile Blood Pressure: Normal Pulse: Tachycardic Respiratory Rate: Normal Appearance: Positive for: Well-Appearing, Non-Toxic, Comfortable Pain Distress: Moderate Mental Status: Positive for: Alert and Oriented X 3 - Systems Exam Head: Present: Atraumatic, Normocephalic, Other (Facial: +ttp on the rt. maxillary/frontal sinuses region, no facial or periorbital swelling, no painful movement of the eye. ). No: Tenderness, Contusion, Swelling, Ecchymosis, Abrasion, Laceration Pupils: Present: PERRL Extroacular Muscles: Present: EOMI Conjunctiva: Present: Normal Ears: Present: NORMAL TM, Normal Canal. No: Erythema Mouth: Present: Moist Mucous Membranes Pharnyx: No: ERYTHEMA, EXUDATE, TONSILS ENLARGED, Muffled/Hoarse Voice, Strider, Soft Palate/Uvular Edema Nose (External): Present: Atraumatic. No: Abrasion, Contusion, Laceration Nose (Internal): Present: Normal Inspection, No Active Bleeding. No: Rhinorrhea, Septal Deviation, Septal Hematoma, Epistaxis Neck: Present: Normal Range of Motion Respiratory/Chest: Present: Clear to Auscultation, Good Air Exchange. No: Respiratory Distress, Accessory Muscle Use Cardiovascular: Present: Regular Rate and Rhythm, Normal S1, S2. No: Murmurs Abdomen: No: Tenderness, Distention, Peritoneal Signs, Rebound, Guarding Back: Present: Normal Inspection. No: CVA Tenderness, Midline Tenderness, Paraspinal Tenderness, Pain with Leg Raise, Decubitus Ulcer Upper Extremity: Present: Normal Inspection. No: Cyanosis, Edema Lower Extremity: Present: Normal Inspection, NORMAL PULSES, Normal ROM, Neurovascularly Intact, Capillary Refill < 2 s. No: Edema, Tenderness, Swelling, Deformity Neurological: Present: GCS=15, CN II-XII Intact, Speech Normal, Motor Func Grossly Intact, Normal Cerebellar Funct, Gait Normal, Memory Normal Skin: Present: Warm, Dry, Normal Color. No: Rashes Lymphatic: No: Cervical Adenopathy Psychiatric: Present: Alert, Oriented x 3, Normal Insight, Normal Concentration Medical Decision Making ED Course and Treatment: 02/17/19 19:14 ICH vs. Intracranial tumor vs. sinusitis vs. headache -Labs -CT head/sinus -IVF/toradol/reglan/bendaryl -Observe and reassess 02/17/19 22:56 -Urine hcg is negative -CT head Sinusitis. No acute intracranial abnormality. -CT sinus Evidence of sphenoid, right maxillary, ethmoid and frontal sinusitis. The roots of several right maxillary teeth project into the floor of the right maxillary sinus. Dental evaluation could be considered. 6.2 mm mucous retention cyst or polyp in the posterior left maxillary sinus. -Labs are nonsignificant -Pt. feels completely relief, symptoms resolved, no pain -All labs and radiology results discussed -Pt. has tried several antibiotics, will give her a trial of levaquin, side effect discussed of levaquin including prolong QT and achilles tendon ruptures which she understand. -Discharge home with levaquin, claritin d24, motrin, flonase, bed rest, follow up with your own and ENT/Dentist within 2 days, avoid gym and exercise while taking the antibiotic, stay hydrated, return to the ER for any new or worsening signs or symptoms. - RAD Interpretation Radiology Orders: -CT head EXAM: CT Head Without IV contrast. CLINICAL HISTORY: Headache TECHNIQUE: Axial computed tomography images of the head/brain without intravenous contrast. COMPARISON: None provided. FINDINGS: BRAIN: No acute intraparenchymal hemorrhage. No mass lesion. No CT evidence for acute territorial infarct. No midline shift or extra-axial collections. VENTRICLES: No hydrocephalus. ORBITS: The orbits are unremarkable. SINUSES AND MASTOIDS: Acute on chronic pansinusitis is seen. The mastoid air cells are clear. BONES: No fracture. SOFT TISSUES: Unremarkable. IMPRESSION: Sinusitis. No acute intracranial abnormality. Electronically signed on Feb 17, 2019 9:34:19 PM EDT by: Lukasz Lazcano M.D., M.B.A., Certified By [employer] Fellowship Trained MRI and CT Specialist -CT sinus EXAM: CT Sinuses without Intravenous Contrast. CLINICAL HISTORY: Unresolved sinusitis TECHNIQUE: Computed tomography images of the maxillofacial sinuses without intravenous contrast. 807.42 mGy-cm CONTRAST: Without COMPARISON: None provided. FINDINGS: PARANASAL SINUSES: There is mucoperiosteal thickening and air-fluid level within the sphenoid sinus compatible with sinusitis. There is total opacification of the right maxillary sinus, mid-anterior right ethmoid sinuses and totally opacified right frontal sinus compatible with sinusitis. A 6.2 mm mucous retention cyst or polyp is seen in the posterior left maxillary sinus. Also noted are projection of the roots of several right maxillary teeth into the floor of the right maxillary sinus. Dental evaluation could be considered. The remaining sinuses are well aerated, normally developed, and clear. ORBITS: Unremarkable. NASAL CAVITY/SEPTUM: Patent. BONES: No acute osseous abnormality. SOFT TISSUES: The soft tissues are unremarkable. IMPRESSION: 1. Evidence of sphenoid, right maxillary, ethmoid and frontal sinusitis. 2. The roots of several right maxillary teeth project into the floor of the right maxillary sinus. Dental evaluation could be considered. 3. 6.2 mm mucous retention cyst or polyp in the posterior left maxillary sinus. Electronically signed on Feb 17, 2019 10:19:03 PM EDT by: Lukasz Lazcano M.D., M.B.A., Certified By [employer] Fellowship Trained MRI and CT Specialist Paste Plant Supervisor: Radiologist - PA / NEONATAL NURSE / Resident Statement MD/ has reviewed & agrees with the documentation as recorded. Disposition/Present on Arrival - Present on Arrival Any Indicators Present on Arrival: No History of DVT/PE: No History of Uncontrolled Diabetes: No Urinary Catheter: No History of Decub. Ulcer: No History Surgical Site Infection Following: None - Disposition Have Diagnosis and Disposition been Completed?: Yes Diagnosis: Sinusitis, Abnormal CT of paranasal sinuses Disposition: HOME/ ROUTINE Disposition Time: 22:58 Patient Plan: Discharge Condition: IMPROVED Additional Instructions: -Discharge home with levaquin, claritin d24, motrin, flonase, bed rest, follow up with your own and ENT/Dentist within 2 days, avoid gym and exercise while taking the antibiotic, stay hydrated, return to the ER for any new or worsening signs or symptoms. Prescriptions: Fluticasone Propionate [Flonase Allergy Relief] 1 spray NS DAILY #1 spray.susp Ibuprofen [Motrin] 600 mg PO QID PRN #30 tab PRN Reason: Other Levofloxacin [Levaquin] 750 mg PO DAILY #4 tablet Loratadine/Pseudoephedrine [Claritin-D 24 Hour Tablet] 1 each PO DAILY #7 tab.er.24h Referrals: Sugey Thorpe DO [Primary Care Provider] - Follow up with primary Russel Bush DO [Staff Provider] - Follow up with primary Forms: [employer] ([place]ali), WORK NOTE
[2019-02-17] MEDS ORDERED: Sodium Chloride 0.9% 1,000 ML IV STA (19:10)
[2019-02-17] MEDS ORDERED: DiphenhydrAMINE 50 mg/ml Inj IVP STA (19:10)
[2019-02-17 19:32] LABS: BASO # 0.03 K/mm3 (0.0-2.0); BASO % 0.3 % (0.0-3.0); EOS # 0.5 (0.0-0.7); EOS % 4.9 % (1.5-5.0); HEMOGLOBIN 13.1 g/dL (12.0-16.0); LYMPH # 2.9 (1.2-3.4); LYMPH % 26.6 % (22.0-35.0); MEAN CELL VOLUME 85.8 fl (80.0-105.0); MEAN CORPUSCULAR HEMOGLOBIN 28.2 pg (25.0-35.0); MEAN CORPUSCULAR HGB CONC 32.9 g/dl (31.0-37.0); MEAN PLATELET VOLUME 9.4 fl (7.0-11.0); MONO # 0.3 (0.1-0.6); MONO % 3.1 % (1.0-6.0); RBC 4.64 10^6/uL (3.5-6.1); WHITE BLOOD COUNT 10.7 10^3/uL (4.5-11.0)
[2019-02-17 19:40] LABS: ALB/GLOB RATIO 1.3 (1.1-1.8)
[2019-02-17 19:45] LABS: ALBUMIN 4.7 g/dL (3.0-4.8); ALT/SGPT 7 U/L (7-56); AST/SGOT 28 U/L (14-36); BLOOD UREA NITROGEN 13 mg/dL (7-21); CALCIUM 9.3 mg/dL (8.4-10.5); GFR NON-AFRICAN AMERICAN > 60
[2019-02-17] MEDS ORDERED: levoFLOXacin 750 MG TAB PO STA (22:55)
[2019-02-17 23:03] VITALS: BP 123/71; PULSE 79
--- NOTE | 2019-02-18 08:37 | CT ---
Date of service: 02/17/2019 PROCEDURE: CT HEAD WITHOUT CONTRAST. HISTORY: headache COMPARISON: None available. TECHNIQUE: Axial computed tomography images were obtained through the head/brain without intravenous contrast. Radiation dose: Total exam DLP = 881.03 mGy-cm. This CT exam was performed using one or more of the following dose reduction techniques: Automated exposure control, adjustment of the mA and/or kV according to patient size, and/or use of iterative reconstruction technique. FINDINGS: HEMORRHAGE: No intracranial hemorrhage. BRAIN: No mass effect or edema. No atrophy or chronic microvascular ischemic changes. VENTRICLES: Unremarkable. No hydrocephalus. CALVARIUM: Unremarkable. PARANASAL SINUSES: There is a fluid level in the sphenoid sinus. There is partial opacification of the remaining sinuses. MASTOID AIR CELLS: Unremarkable as visualized. No inflammatory changes. OTHER FINDINGS: None. IMPRESSION: No acute findings Sinusitis
--- NOTE | 2019-02-18 09:03 | CT ---
Date of service: 02/17/2019 PROCEDURE: CT SINUSES WITHOUT CONTRAST HISTORY: unresolved sinusitis COMPARISON: None available. TECHNIQUE: Contiguous axial CT images of the paranasal sinuses were obtained. Coronal and sagittal reformats were generated. Radiation dose: Total exam DLP = 807.42 mGy-cm. This CT exam was performed using one or more of the following dose reduction techniques: Automated exposure control, adjustment of the mA and/or kV according to patient size, and/or use of iterative reconstruction technique. FINDINGS: FRONTAL SINUSES: Complete opacification of right-sided frontal sinuses ETHMOID SINUSES: Near complete opacification of right-sided ethmoid sinuses. Minimal mucosal thickening on the left SPHENOID SINUSES: Mucosal thickening in the sphenoid sinus MAXILLARY SINUSES: Complete opacification of the right maxillary sinus.. Roots of the teeth in the posterior alveolar ridge extend into both maxillary sinuses. There is bony dehiscence or fracture on the right. SINUS DRAINAGE: The right-sided ostiomeatal unit is obstructed by soft tissue thickening. The left side is patent NASAL SEPTUM: Deviation to the right MASS: None. SKULL BASE: Unremarkable. TEMPORAL BONES: Middle ears and mastoid grossly unremarkable. OTHER FINDINGS: The report concurs with the preliminary [facility] report IMPRESSION: Complete opacification of the right maxillary sinus.. Roots of the teeth in the posterior alveolar ridge extend into both maxillary sinuses. There is bony dehiscence or fracture on the right.. There is sphenoid, right maxillary ethmoid and frontal sinusitis
== END 2019-02-17 23:16 | disposition home or self-care (01) ==
LOC: ED 18:19
DX: J32.9 Chronic sinusitis, unspecified (principal); R93.89 Abnormal findings on diagnostic imaging of other specified body structures; F17.210 Nicotine dependence, cigarettes, uncomplicated
CPT/HCPCS: 70450; 70486; 80053; 81025; 85025; 96361; 96374; 96375; 99285; J1200; J1885; J2765; J7030

== ENCOUNTER 2019-02-26 20:00 | Emergency (ER) | payer MEDICAID ==
[2019-02-26 20:25] VITALS: BMI 28.3
[2019-02-26 20:26] VITALS: RESP 18; TEMP 97.7
--- NOTE | 2019-02-26 20:48 | ED PDOC ---
Arrival/HPI - General Chief Complaint: Cough, Cold, Congestion Time Seen by Provider: 02/26/19 20:01 Historian: Patient - History of Present Illness Narrative History of Present Illness (Text): 02/27/19 02:44 39 y/o female with PMH of chronic sinusitis presents to the ED c/o sinus pressure x 4 days. Pt states she has been treated with 4 rounds of antibiotics to include amoxicillin, augmentin, clindamycin, and levaquin. Pt was seen here approx 1.5 weeks ago for the same symptoms and had normal bloodwork and a CT showing sinusitis. Pt never followed up with ENT as instructed. Pt states her symptoms returned 2 days after stopping the Levaquin. She is noncompliant with her flonase and claritin. Denies fever, chills, dizziness, vision changes, dental pain, eye pain, sore throat, cough, SOB, chest pain, nausea, vomiting, abdominal pain, or any other associated complaints. Past Medical History - Provider Review Nursing Documentation Reviewed: Yes - Infectious Disease Hx of Infectious Diseases: None - Tetanus Immunization Tetanus Immunization: Unknown - Cardiac Hx Cardiac Disorders: No Hx Hypertension: No - Pulmonary Hx Respiratory Disorders: No - Neurological Hx Neurological Disorder: Yes Hx Dizziness: Yes Hx Seizures: Yes - HEENT Hx HEENT Disorder: No - Renal Hx Renal Disorder: No - Endocrine/Metabolic Hx Endocrine Disorders: No - Hematological/Oncological Hx Blood Disorders: Yes Hx Anemia: Yes - Integumentary Hx Dermatological Disorder: No - Musculoskeletal/Rheumatological Hx Musculoskeletal Disorders: Yes Other/Comment: L KNEE PAIN - Gastrointestinal Hx Gastrointestinal Disorders: No - Genitourinary/Gynecological Hx Genitourinary Disorders: Yes Hx Urinary Tract Infection: Yes - Psychiatric Hx Psychophysiologic Disorder: Yes Hx Depression: Yes Hx Substance Use: No (denies) - Past Surgical History Past Surgical History: No Previous - Surgical History Hx Tonsillectomy: Yes - Anesthesia Hx Anesthesia: Yes Hx Anesthesia Reactions: No Hx Malignant Hyperthermia: No - Suicidal Assessment Feels Threatened In Home Enviroment: No Family/Social History - Physician Review Nursing Documentation Reviewed: Yes Family/Social History: No Known Family HX Smoking Status: Heavy Smoker > 10 Cigarettes Daily Hx Alcohol Use: Yes (Former Drinker) Hx Substance Use: No (denies) Substance used: suboxone Allergies/Home Meds Allergies/Adverse Reactions: Allergies apple Allergy (Verified 02/26/19 20:25) RASH pear Allergy (Verified 02/26/19 20:25) RASH Penicillins Allergy (Verified 02/26/19 20:25) RASH Review of Systems - Review of Systems Constitutional: Normal. absent: Fevers Eyes: Normal. absent: Vision Changes, Eye Pain ENT: Sinus Congestion Respiratory: Normal. absent: SOB, Cough Cardiovascular: Normal. absent: Chest Pain, Palpitations, Syncope Gastrointestinal: Normal. absent: Abdominal Pain, Nausea, Vomiting Genitourinary Female: Normal. absent: Dysuria, Frequency Musculoskeletal: Normal. absent: Back Pain, Neck Pain Skin: Normal. absent: Rash Neurological: Headache. absent: Dizziness, Focal Weakness, Speech Changes Physical Exam Vital Signs Reviewed: Yes Vital Signs Temp Pulse Resp BP Pulse Ox 02/26/19 20:25 97.7 F 86 18 138/89 98 Temperature: Afebrile Blood Pressure: Normal Pulse: Regular Respiratory Rate: Normal Appearance: Positive for: Well-Appearing, Non-Toxic, Comfortable Pain Distress: None Mental Status: Positive for: Alert and Oriented X 3 - Systems Exam Head: Present: Atraumatic, Normocephalic, Other (tenderness to palpation over right maxillary and ethmoid sinuses) Pupils: Present: PERRL Extroacular Muscles: Present: EOMI Conjunctiva: Present: Normal Ears: Present: NORMAL TM, Normal Canal, Fluid (clear, behind bilateral TM). No: Erythema, TM Bulging Mouth: Present: Moist Mucous Membranes Nose (External): Present: Atraumatic Nose (Internal): Present: Normal Inspection. No: Rhinorrhea, Purulent Mucous Neck: Present: Normal Range of Motion. No: Meningeal Signs Respiratory/Chest: Present: Clear to Auscultation, Good Air Exchange. No: Respiratory Distress, Accessory Muscle Use Cardiovascular: Present: Regular Rate and Rhythm, Normal S1, S2, Peripheal Pulses Present. No: Murmurs Back: Present: Normal Inspection Upper Extremity: Present: Normal Inspection, Normal ROM, NORMAL PULSES, Neurovascularly Intact, Capillary Refill < 2s. No: Cyanosis, Edema, Temperature Abnormalties Lower Extremity: Present: Normal ROM Neurological: Present: GCS=15, CN II-XII Intact, Speech Normal, Motor Func Grossly Intact, Normal Sensory Function, Gait Normal Skin: Present: Warm, Dry, Normal Color. No: Rashes Psychiatric: Present: Alert, Oriented x 3, Normal Insight, Normal Concentration, Normal Affect, Normal Mood Medical Decision Making ED Course and Treatment: Diagnostic testing reviewed from prior visit. Reviewed case with ED attending Dr. Sanchez. Advised ENT followup. Pt without fever, chills, headache, vision changes, neck pain, dizziness, purulent rhinorrhea, or cough. Vitals are stable. Diagnostic testing results and plan of care discussed with patient. Strict instructions given regarding prescription use, importance of followup, and signs/symptoms to return to ER including fever, chills, difficulty breathing, or any other new/worsening symptoms. Pt verbalized understanding of discussion. Patient is A&Ox3, ambulating with steady gait, with vital signs stable for discharge. Disposition/Present on Arrival - Present on Arrival Any Indicators Present on Arrival: No History of DVT/PE: No History of Uncontrolled Diabetes: No Urinary Catheter: No History of Decub. Ulcer: No History Surgical Site Infection Following: None - Disposition Have Diagnosis and Disposition been Completed?: Yes Diagnosis: Chronic sinusitis Disposition: HOME/ ROUTINE Disposition Time: 20:41 Patient Plan: Discharge Condition: STABLE Discharge Instructions (ExitCare): Sinus Headache (DC), Chronic Sinusitis Additional Instructions: Followup with ENT Continue flonase, 2 sprays in each nostril daily Continue zyrtec daily Followup with clinic or PMD within2 days Return to ER with any new/worsening symptoms Prescriptions: Fluticasone Propionate [Flonase] 2 spr NS DAILY #1 bottle Referrals: Russel Bush DO [Staff Provider] - Follow up with primary Becky Pimentel MD [Medical Doctor] - Follow up with primary [facility] [place] - Follow up with primary Forms: [employer] ([employer]og[employer]), WORK NOTE
[2019-02-26 21:36] VITALS: BP 132/71; PULSE 78; O2SAT 99
== END 2019-02-26 21:15 | disposition home or self-care (01) ==
LOC: ED 20:00
DX: J32.9 Chronic sinusitis, unspecified (principal); F17.210 Nicotine dependence, cigarettes, uncomplicated